=== PATIENT | female | born 1965 | race Two or more races ===

== ENCOUNTER → 2025-06-19 | Emergency (ER) | payer OTHER ==
[~2025-06-19] VITALS: Ht 157.5 cm; Wt 70.8 kg
[~2025-06-19] MED LIST: METFORMIN HCL500 M3; MICARDIS40 MG PO; ROSUVASTATIN CA20 MG PO
== END | disposition left against medical advice (07) ==
LOC: ER 09:56
DX: Z53.21 Procedure and treatment not carried out due to patient leaving prior to being seen by health care provider (principal)